=== PATIENT | female | born 1940 | race Caucasian/White ===

== ENCOUNTER 2017-03-27 16:24 | Emergency (ER) | payer MEDICARE, OTHER ==
[2017-03-27] MEDS ORDERED: Famotidine 20 MG/2 ML SDV IVPUSH ONE (16:28)
[2017-03-27] MEDS ORDERED: Sodium Chloride 0.9% 10 ML Syringe FLUSH PRN (16:28)
--- NOTE | 2017-03-27 16:28 | EDM.PDOC ---
ED HPI GENERAL MEDICAL PROBLEM - General Chief Complaint: General Stated Complaint: weakness, dehydration, constipation Time Seen by Provider: 03/27/17 16:25 Source of Information: Reports: Patient, Family (Grandson, telephone consultation with daughter), Old Records ([facility] chart/EMR) History Limitations: Reports: Altered Mental Status - History of Present Illness INITIAL COMMENTS - FREE TEXT/NARRATIVE: The patient was brought to the emergency room via private automobile by her grandson for evaluation of multiple nonspecific symptoms including progressive anorexia during the last months, constipation refractory to frequent fleets enema, nonproductive cough, wheezing, and some confusion. She did have a minor fall 2 days ago with large ecchymosis on her right leg at this time. No known history of head injury, loss of consciousness, etc., however the patient and the family are somewhat poor historians. Patient denies medication noncompliance despite significant elevated TSH as below. The patient denies any chest pain/pressure, heart flutter, dizziness, orthostasis, orthopnea, diaphoresis, paresthesias, recent decreased exercise tolerance, or any other anginal-type symptoms. No apparent history of fever or known exposure to infection or current UTI symptoms Onset: Gradual Duration: Getting Worse, Other (One month as above) Location: Reports: Abdomen (Questionable nonspecific generalized secondary to constipation), Lower Extremity, Right (Urinary to recent fall with ecchymosis). Denies: Head, Face, Chest, Back, Pelvis, Upper Extremity, Left, Upper Extremity, Right, Lower Extremity, Left, Radiates to Quality: Reports: Ache Severity: Mild Improves with: Reports: Rest Worsens with: Reports: Movement Context: Reports: Other (As above) Associated Symptoms: Reports: Confusion, Cough, Loss of Appetite, Malaise, Shortness of Breath, Weakness (Generalized). Denies: Chest Pain, cough w sputum , Diaphoresis, Fever/Chills, Headaches, Nausea/Vomiting, Seizure, Syncope Treatments COMBINATION TECHNICIAN: Reports: Other (see below) (None including nebulizer therapy) Abdomen Pain Score (Numeric/FACES): 5 - Related Data Allergies Allergy/AdvReac Type Severity Reaction Status Date / Time codeine Allergy Tachycardia Verified 03/27/17 16:34 Home Meds: Home Meds Albuterol Sulfate 2.5 mg IH Q4H PRN 12/28/15 [History] Albuterol [Proventil HFA] 2 puff INH Q4H PRN 12/28/15 [History] Budesonide [Pulmicort] 0.5 mg IH BID 12/28/15 [History] LORazepam 0.5 mg PO QID PRN 12/28/15 [History] Triamterene/Hydrochlorothiazid [Triamterene-HCTZ 37.5-25 MG] 1 each PO DAILY 05/13 [History] Acetaminophen [Tylenol Arthritis Pain] 1 tab PO BEDTIME PRN 03/27/17 [History] Acetaminophen/Diphenhydramine [Tylenol Pm Ex-Strength Caplet] 1 tab PO BEDTIME PRN 03/27/17 [History] Cholecalciferol (Vitamin D3) [D3 Dots] 1 tab PO DAILY 03/27/17 [History] Fluticasone/Vilanterol [Breo Ellipta 200-25 Mcg INH] 1 puff INH DAILY 03/27/17 [ History] Levothyroxine 112 mcg PO DAILY 03/27/17 [History] Mirtazapine 7.5 mg PO BEDTIME 03/27/17 [History] Venlafaxine [Effexor XR] 37.5 mg PO DAILY 03/27/17 [History] Past Medical History HEENT History: Reports: Impaired Vision, Other (See Below) Other HEENT History: Wears glasses Cardiovascular History: Reports: Arrhythmia, High Cholesterol, Hypertension, SOB on Exertion. 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 History: Reports: Dysfunctional Uterine Bleeding, Fibroids, LMP (Approximate): Menopausal Musculoskeletal History: Reports: Back Pain, Chronic, Neck Pain, Chronic, Osteoarthritis, Osteoporosis Psychiatric History: Reports: Anxiety, Depression Endocrine/Metabolic History: Reports: Hypothyroidism, Osteoporosis Oncologic (Cancer) History: Reports: Breast, Other (See Below) Other Oncologic History: 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 with lumpectomy, chemotherapy, and left axillary dissection initially diagnosed in 2010 - Past Surgical History HEENT Surgical History: Reports: Tonsillectomy, Other (See Below) Other HEENT Surgeries/Procedures: Tonsillectomy at age 15 GI Surgical History: Reports: Colonoscopy, Polypectomy, Other (See Below) Other GI Surgeries/Procedures: Colonoscopy on 01/14/13 Female Surgical History: Reports: Breast Biopsy, Other (See Below) Other Female Surgeries/Procedures: Multiple left breast biopsies in 1989 and again in 2006 with subsequent left breast lumpectomy and left axillary lymph node dissection in 2010 secondary to breast cancer as above Oncologic Surgical History: Reports: Lumpectomy, Other (See Below) Other Oncologic Surgeries/Procedures: As above - Past Imaging History Past Imaging History: Reports: DEXA Scan (Last DEXA scan on 02/26/11), Ultrasound (Pelvic and abdominal ultrasound on 02/09/15) Social & Family History - Family History Cardiac: Reports: Pacemaker, Other (See Below) Other Cardiac Family History: Mother with pacemaker Musculoskeletal: Reports: Osteoarthritis, Other (See Below) Other Musculoskeletal Family History: Sister with severe osteoarthritis Neurological: Reports: Parkinson's, Other (See Below) Other Neurological Family History: Father with Parkinson's disease Oncologic: Reports: Other (See Below) Other Oncologic Family History: Father with unknown type of lip cancer - Tobacco Use Smoking Status *Q: Current Every Day Smoker Years of Tobacco use: 60 Packs/Tins Daily: 0.7 Second Hand Smoke Exposure: Yes - Recreational Drug Use Recreational Drug Use: No - Living Situation & Occupation Living situation: Reports: , with Family ( and daughter) ED ROS GENERAL - Review of Systems Review Of Systems: ROS reveals no pertinent complaints other than HPI. (Patient and family are poor historians) ED EXAM, GENERAL - Physical Exam Exam: See Below Exam Limited By: Altered Mental Status General Appearance: Mild Distress (Mild distress initially secondary to dyspnea however improved with treatment as below), Other (Mild confusion) Eye Exam: Bilateral Eye: EOMI, Normal Inspection (No nystagmus), PERRL Ears: Normal External Exam, Normal Canal, Hearing Grossly Normal, Normal TMs Nose: Normal Mucosa, No Blood, Clear Rhinorrhea Throat/Mouth: Normal Inspection, Normal Lips, Normal Teeth, Normal Gums, Normal Oropharynx, Normal Voice, No Airway Compromise. No: Dysphagia, Perioral Cyanosis Head: Atraumatic, Normocephalic. No: Facial Swelling, Facial Tenderness, Sinus Tenderness Neck: Supple, Non-Tender, Full Range of Motion, Carotid Bruit (Mild bilateral carotid bruits). No: Lymphadenopathy (L), Lymphadenopathy (R), Thyromegaly Respiratory/Chest: No Accessory Muscle Use, Chest Non-Tender, Respiratory Distress (Mild initially improved with treatment), Rales (Moderate diffuse rales , rhonchi, and wheezing improved with treatment with persistent mild bilateral basilar rales at transfer). No: Pleural Rub, Retractions Cardiovascular: Normal Peripheral Pulses, Regular Rate, Rhythm, No Edema, No Gallop, No JVD, No Murmur, No Rub. No: Gallop/S3, Gallop/S4, Extra Beats (No extrasystoles at time of exam), Friction Rub Peripheral Pulses: 2+: Radial (L), Radial (R), Dorsalis Pedis (L), Dorsalis Pedis (R) GI/Abdominal: Normal Bowel Sounds, No Organomegaly, No Abnormal Bruit, No Mass, Pelvis Stable, Distended (Borderline secondary to constipation), Tender ( Diffuse nonspecific borderline). No: Guarding, Rebound (Female) Exam: Deferred Rectal (Female) Exam: Normal Rectal Tone, Fecal Impaction, Heme - Stool, Hemorrhoids (Grade 3 internal/external hemorrhoids). No: Black Stool, Bloody Stool, Mass, Rectal Fissure, Tenderness (No Johnathan space tenderness) Back Exam: Normal Inspection, Full Range of Motion. No: CVA Tenderness (L), CVA Tenderness (R), Muscle Spasm Extremities: Normal Range of Motion, No Pedal Edema, Normal Capillary Refill, Leg Pain (Mild nonspecific right leg discomfort with no deformity however moderate to severe ecchymosis extending in the inguinal region to the foot however no significant hematomas). No: Vicenta's Sign Neurological: Alert, CN II-XII Intact, Normal Reflexes (Edit Babinski's), Confused (Mild) Psychiatric: Normal Affect, Normal Mood Skin Exam: Ecchymosis (Right leg as above). No: Diaphoretic, Wound/Incision Lymphatic: No Adenopathy EKG INTERPRETATION EKG Date: 03/27/17 Time: 16:50 Rhythm: NSR Rate (Beats/Min): 68 [place]: Normal (Neutral cardiac axis) P-Wave: Enlarged (Mild Diffuse biphasic P waves with mild poor R-wave progression in anterior leads) QRS: Normal (QRS interval of 0.09 seconds representing repolarization changes with T-wave inversion in lead V1) ST-T: Normal QT: Normal MT/PQ Interval: 0.19 seconds Comparison: Change From Previous EKG (Resolution of previous PACs on 12/28/15) Course - Vital Signs Last Recorded V/S: Last Vital Signs Temp 36.6 C 03/27/17 16:30 Pulse 80 03/27/17 18:03 Resp 20 03/27/17 19:34 BP 95/68 03/27/17 19:34 Pulse Ox 91 L 03/27/17 19:34 Vital Signs - 24 hr 03/27/17 03/27/17 03/27/17 16:28 16:30 17:18 Temperature [ 36.6 C Temporal] Pulse, 88 74 71 Peripheral [ Left Pulse Oximetry] Respiratory 26 H 26 H 24 H Rate Blood Pressure 103/69 128/83 131/53 L [Left Upper Arm ] Blood Pressure [Right Upper Arm] O2 Sat by Pulse 91 L 88 L 94 L Oximetry 03/27/17 03/27/17 03/27/17 17:47 18:03 19:34 Temperature [ Temporal] Pulse, 66 80 Peripheral [ Left Pulse Oximetry] Respiratory 20 18 20 Rate Blood Pressure [Left Upper Arm ] Blood Pressure 106/39 L 84/66 L 95/68 [Right Upper Arm] O2 Sat by Pulse 89 L 97 91 L Oximetry - Orders/Labs/Meds Orders: Active Orders 24 hr Category Date Time Status Cardiac Monitoring [RC] . DIRECTED Care 03/27/17 16:28 Active EKG Documentation Completion [RC] ASDIRECTED Care 03/27/17 16:28 Active Oxygen Therapy, ED [RC] CONTINUOUS Care 03/27/17 16:28 Active Peripheral IV Care [RC] . DIRECTED Care 03/27/17 16:28 Active Pulse Oximetry [RC] CONTINUOUS Care 03/27/17 16:28 Active RT Aerosol Therapy [RC] ASDIRECTED Care 03/27/17 16:35 Active Up With Assistance [RC] PFP Care 03/27/17 16:28 Active Vital Signs [RC] PFP Care 03/27/17 16:28 Active Nothing per Oral Now Diet [DIET] Diet 03/27/17 Breakfast Active Abdomen Series w Chest 1V [CR] Stat Exams 03/27/17 16:30 Taken Levothyroxine [Synthroid] Med 03/28/17 17:51 Once 100 mcg PO ONETIME ONE Sodium Chloride 0.9% [Saline Flush] Med 03/27/17 16:28 Active 10 ml FLUSH ASDIRECTED PRN Obtain Past Medical Record [OM.PC] Urgent Oth 03/27/17 16:28 Active Peripheral IV Insertion Adult [OM.PC] Stat Oth 03/27/17 16:28 Ordered Resuscitation Status Stat Resus Stat 03/27/17 16:28 Ordered Medication Orders Levothyroxine Sodium (Synthroid) 100 mcg PO ONETIME ONE Stop: 03/28/17 17:52 Sodium Chloride (Saline Flush) 10 ml FLUSH ASDIRECTED PRN PRN Reason: Keep Vein Open Labs: Laboratory Tests 03/27/17 03/27/17 03/27/17 Range/Units 16:45 16:45 16:45 WBC 17.1 H (4.0-10.2) K/uL RBC 1.98 L (3.77-5.09) M/uL Hgb 6.7 L* D (11.7-15.5) g/dL Hct 20.5 L* (34.0-46.0) % MCV 103.5 H (84.0-98.0) fL MCH 33.8 H (28.2-33.3) pg MCHC 32.7 (31.7-36.0) g/dL RDW 13.9 (11.2-14.1) % Plt Count 178 (150-350) K/uL Neut % (Auto) 87.6 H (45.0-80.0) % Lymph % (Auto) 4.4 L (10.0-50.0) % [place] % (Auto) 7.7 (2.0-14.0) % Eos % (Auto) 0.1 (0.0-5.0) % Baso % (Auto) 0.2 (0.0-2.0) % Neut # (Auto) 14.97 H (1.40-7.00) K/uL Lymph # (Auto) 0.76 (0.50-3.50) K/uL [place] # (Auto) 1.32 H (0.00-1.00) K/uL Eos # (Auto) 0.01 (0.00-0.50) K/uL Baso # (Auto) 0.04 (0.00-0.20) K/uL PT 10.2 (9.8-11.7) SEC INR 1.0 APTT 21.1 L (22.1-29.8) SEC D-Dimer, Quantitative 521 H (0-400) ng/mL Sodium (136-145) mmol/L Potassium (3.5-5.1) mmol/L Chloride (98-107) mmol/L Carbon Dioxide (21.0-32.0) mmol/L BUN (7-18) mg/dL Creatinine (0.51-1.17) mg/dL Est Cr Clr Drug Dosing mL/min Estimated GFR (MDRD) mL/min Glucose (74-106) mg/dL Hemoglobin A1c (4.3-5.7) % Lactic Acid (0.4-2.0) mmol/L Uric Acid (2.6-7.2) mg/dL Calcium (8.5-10.1) mg/dL Magnesium (1.8-2.4) mg/dL Total Bilirubin (0.2-1.0) mg/dL AST (15-37) U/L ALT (12-78) U/L Alkaline Phosphatase (46-116) IU/L Creatine Kinase (26-308) U/L Creatine Kinase Index (0.0-2.5) % CK-MB (CK-2) (0.00-3.60) ng/mL Troponin I (0.000-0.056) ng/mL NT-Pro-B Natriuret Pep (0-125) pg/mL Total Protein (6.4-8.2) g/dL Albumin (3.4-5.0) g/dL Amylase (25-115) U/L Lipase (73-393) U/L TSH, Ultra Sensitive (0.358-3.740) mIU/mL 03/27/17 03/27/17 03/27/17 Range/Units 16:45 16:45 16:45 WBC (4.0-10.2) K/uL RBC (3.77-5.09) M/uL Hgb (11.7-15.5) g/dL Hct (34.0-46.0) % MCV (84.0-98.0) fL MCH (28.2-33.3) pg MCHC (31.7-36.0) g/dL RDW (11.2-14.1) % Plt Count (150-350) K/uL Neut % (Auto) (45.0-80.0) % Lymph % (Auto) (10.0-50.0) % [place] % (Auto) (2.0-14.0) % Eos % (Auto) (0.0-5.0) % Baso % (Auto) (0.0-2.0) % Neut # (Auto) (1.40-7.00) K/uL Lymph # (Auto) (0.50-3.50) K/uL [place] # (Auto) (0.00-1.00) K/uL Eos # (Auto) (0.00-0.50) K/uL Baso # (Auto) (0.00-0.20) K/uL PT (9.8-11.7) SEC INR APTT (22.1-29.8) SEC D-Dimer, Quantitative (0-400) ng/mL Sodium 129 L D (136-145) mmol/L Potassium 4.1 (3.5-5.1) mmol/L Chloride 85 L D (98-107) mmol/L Carbon Dioxide 39.6 H (21.0-32.0) mmol/L BUN 19 H (7-18) mg/dL Creatinine 1.33 H (0.51-1.17) mg/dL Est Cr Clr Drug Dosing 29.77 mL/min Estimated GFR (MDRD) 39 mL/min Glucose 207 H (74-106) mg/dL Hemoglobin A1c (4.3-5.7) % Lactic Acid 3.4 H (0.4-2.0) mmol/L Uric Acid 8.4 H (2.6-7.2) mg/dL Calcium 8.9 (8.5-10.1) mg/dL Magnesium 2.1 (1.8-2.4) mg/dL Total Bilirubin 0.9 (0.2-1.0) mg/dL AST 64 H (15-37) U/L ALT 25 (12-78) U/L Alkaline Phosphatase 44 L (46-116) IU/L Creatine Kinase 1735 H (26-308) U/L Creatine Kinase Index 0.4 (0.0-2.5) % CK-MB (CK-2) 6.40 H* (0.00-3.60) ng/mL Troponin I 0.022 (0.000-0.056) ng/mL NT-Pro-B Natriuret Pep 343 H (0-125) pg/mL Total Protein 6.5 (6.4-8.2) g/dL Albumin 3.6 (3.4-5.0) g/dL Amylase 30 (25-115) U/L Lipase (73-393) U/L TSH, Ultra Sensitive 87.984 H (0.358-3.740) mIU/mL 03/27/17 03/27/17 Range/Units 16:45 16:45 WBC (4.0-10.2) K/uL RBC (3.77-5.09) M/uL Hgb (11.7-15.5) g/dL Hct (34.0-46.0) % MCV (84.0-98.0) fL MCH (28.2-33.3) pg MCHC (31.7-36.0) g/dL RDW (11.2-14.1) % Plt Count (150-350) K/uL Neut % (Auto) (45.0-80.0) % Lymph % (Auto) (10.0-50.0) % [place] % (Auto) (2.0-14.0) % Eos % (Auto) (0.0-5.0) % Baso % (Auto) (0.0-2.0) % Neut # (Auto) (1.40-7.00) K/uL Lymph # (Auto) (0.50-3.50) K/uL [place] # (Auto) (0.00-1.00) K/uL Eos # (Auto) (0.00-0.50) K/uL Baso # (Auto) (0.00-0.20) K/uL PT (9.8-11.7) SEC INR APTT (22.1-29.8) SEC D-Dimer, Quantitative (0-400) ng/mL Sodium (136-145) mmol/L Potassium (3.5-5.1) mmol/L Chloride (98-107) mmol/L Carbon Dioxide (21.0-32.0) mmol/L BUN (7-18) mg/dL Creatinine (0.51-1.17) mg/dL Est Cr Clr Drug Dosing mL/min Estimated GFR (MDRD) mL/min Glucose (74-106) mg/dL Hemoglobin A1c 6.2 H (4.3-5.7) % Lactic Acid (0.4-2.0) mmol/L Uric Acid (2.6-7.2) mg/dL Calcium (8.5-10.1) mg/dL Magnesium (1.8-2.4) mg/dL Total Bilirubin (0.2-1.0) mg/dL AST (15-37) U/L ALT (12-78) U/L Alkaline Phosphatase (46-116) IU/L Creatine Kinase (26-308) U/L Creatine Kinase Index (0.0-2.5) % CK-MB (CK-2) (0.00-3.60) ng/mL Troponin I (0.000-0.056) ng/mL NT-Pro-B Natriuret Pep (0-125) pg/mL Total Protein (6.4-8.2) g/dL Albumin (3.4-5.0) g/dL Amylase (25-115) U/L Lipase 109 (73-393) U/L TSH, Ultra Sensitive (0.358-3.740) mIU/mL Meds: Medications Generic Name Dose Route Start Last Admin Trade Name Freq PRN Reason Stop Dose Admin Levothyroxine Sodium 100 mcg 03/28/17 17:51 Synthroid PO 03/28/17 17:52 ONETIME ONE Sodium Chloride 10 ml 03/27/17 16:28 Saline Flush FLUSH ASDIRECTED PRN Keep Vein Open Discontinued Medications Generic Name Dose Route Start Last Admin Trade Name Freq PRN Reason Stop Dose Admin Albuterol/Ipratropium 3 ml 03/27/17 16:35 03/27/17 16:58 Duoneb 3.0-0.5 Mg/3 Ml NEB 03/27/17 16:36 3 ml ONETIME ONE Administration Budesonide 0.5 mg 03/27/17 16:35 03/27/17 17:03 Pulmicort NEB 03/27/17 16:36 0.5 mg ONETIME ONE Administration Famotidine 40 mg 03/27/17 16:28 03/27/17 16:58 Pepcid IVPUSH 03/27/17 16:29 40 mg ONETIME ONE Administration Ceftriaxone Sodium 1 gm/ 100 mls @ 200 mls/hr 03/27/17 17:50 03/27/17 17:57 Sodium Chloride IV 03/27/17 18:19 200 mls/hr ONETIME ONE Administration - Radiology Interpretation Free Text/Narrative:: Acute abdominal x-rays shows moderate diffuse bowel gaseous distention with possible borderline beginning obstruction secondary to diffuse moderate to severe stool including in the rectal vault. No fluid levels or free air noted. Moderate to severe cardiomegaly with moderate aortic valve calcification and moderately prominent proximal aortic arch. Probable pulmonary hypertension and mild centralized CHF with additional moderate COPD changes and left lower lobe atelectasis. Surgical is noted in the left axillary region with moderate bilateral coxarthrosis Departure - Departure Time of Disposition: 19:15 Disposition: DC/Tfer to [facility] 02 Condition: Fair Clinical Impression: Pneumonia, COPD (chronic obstructive pulmonary disease), CHF (congestive heart failure), Hyponatremia, Elevated CK, Elevated LFTs, Anemia, Elevated blood uric acid level, Abdominal pain, Osteoarthritis, Diabetes mellitus, D-dimer, elevated , Lactic acid increased, Hypothyroidism (acquired) - Discharge Information Referrals: Oma Toussaint PA [Primary Care Provider] - Forms: ED Department Discharge, Interfacility Transfer EMTALA - Problem List & Annotations (1) Pneumonia SNOMED Code(s): 154945932 Code(s): J18.9 - PNEUMONIA, UNSPECIFIED ORGANISM Status: Acute Priority: High Current Visit: Yes Onset Date: 03/27/17 Annotation/Comment:: Likely bilateral pneumonia secondary to clinical exam. No significant leukocytosis, etc. as below. IV Rocephin given in the emergency room with continued antibiotic therapy per orders from accepting providers. Telephone consultation at 17:[address] Almonte, hospitalist at [facility] in [place], who does accept the patient for direct admission. No further treatment recommendations given. Previous telephone consultation with the patient's daughter, Brianne, at 17:50 hours, who is in agreement with treatment plan, including patient's transfer. Full code status was also confirmed with the patient's daughter. Attempt to obtain sputum with culture and sensitivity ELIZABETH Qualifiers: Pneumonia type: due to unspecified organism Laterality: bilateral Lung location: unspecified part of lung Qualified Code(s): J18.9 - Pneumonia, unspecified organism (2) Lactic acid increased SNOMED Code(s): 94536200 Code(s): E87.2 - ACIDOSIS Status: Acute Priority: High Current Visit: Yes Onset Date: 03/27/17 Annotation/Comment:: Note probable pneumonia by clinical exam with additional significant leukocytosis and possible sepsis. Lactic acid level should be repeated in about 6 hours and consider blood cultures, UA with culture and sensitivity, etc. depending on her clinical course (3) Abdominal pain SNOMED Code(s): 27947896 Code(s): R10.9 - UNSPECIFIED ABDOMINAL PAIN Status: Acute Priority: High Current Visit: Yes Onset Date: ~03/27/17 Annotation/Comment:: Nonspecific abdominal pain with progressive anorexia during the last month. Symptoms likely secondary to chronic constipation, however note significant anemia as below/above. High-dose IV Pepcid given in the emergency room. Note negative Hemoccult. Further GI workup depending on her clinical course Qualifiers: Abdominal location: generalized Qualified Code(s): R10.84 - Generalized abdominal pain (4) Anemia SNOMED Code(s): 418580429 Code(s): D64.9 - ANEMIA, UNSPECIFIED Status: Acute Priority: High Current Visit: Yes Onset Date: 03/27/17 Annotation/Comment:: Severe anemia as above. Likely history of chronic anemia secondary to her diabetic nephropathy , chronic disease, recent blood loss from moderately severe ecchymosis of her right leg. Further workup depending on her clinical course. Patient may benefit from blood transfusion. Note one month history of refractory anorexia and previous history of breast cancer with further workup depending on her clinical course Qualifiers: Anemia type: other cause Other causes of anemia: other cause, not classified Qualified Code(s): D64.89 - Other specified anemias (5) CHF (congestive heart failure) SNOMED Code(s): 76586314 Code(s): I50.9 - HEART FAILURE, UNSPECIFIED Status: Acute Priority: High Current Visit: Yes Onset Date: 03/27/17 Annotation/Comment:: No true chest pain or anginal complaints with chest pain protocol not initiated in the emergency room. Note probable cardiac component to her symptoms, including her COPD exacerbation. Recommend routine rule out NH workup with possible cardiology consultation, etc. depending on her clinical course. No IV Lasix was given in the emergency room per recommendations from accepting provider Qualifiers: Congestive heart failure type: unspecified congestive heart failure type Congestive heart failure chronicity: acute Qualified Code(s): I50.9 - Heart failure, unspecified (6) COPD (chronic obstructive pulmonary disease) SNOMED Code(s): 64856637 Code(s): J44.9 - CHRONIC OBSTRUCTIVE PULMONARY DISEASE, UNSPECIFIED Status : Acute Priority: High Current Visit: Yes Annotation/Comment:: Patient symptoms improved with triple nebulizer treatment in the emergency room. Continue aggressive nebulizer therapy during upcoming hospitalization with known history of O2 dependent COPD Qualifiers: COPD type: COPD with acute lower respiratory infection Qualified Code(s): J44.0 - Chronic obstructive pulmonary disease with acute lower respiratory infection (7) D-dimer, elevated SNOMED Code(s): 403078346 Code(s): R79.89 - OTHER SPECIFIED ABNORMAL FINDINGS OF BLOOD CHEMISTRY Status: Acute Priority: High Current Visit: Yes Onset Date: 03/27/17 Annotation/Comment:: No direct clinical evidence of DVT or PE with further workup by providing physicians. CTA of the chest was not conducted in the emergency room secondary to her renal insufficiency (8) Diabetes mellitus SNOMED Code(s): 63500442 Code(s): E11.9 - TYPE 2 DIABETES MELLITUS WITHOUT COMPLICATIONS Status: Acute Priority: Medium Current Visit: Yes Onset Date: 03/27/17 Annotation/Comment:: No previous history of diabetes mellitus. Note hyperglycemia, renal insufficiency, and mildly elevated glycosylated hemoglobin. Continue close follow-up by accepting providers Qualifiers: Diabetes mellitus type: type 2 Diabetes mellitus complication status: with kidney complications Diabetes mellitus complication detail: with chronic kidney disease Diabetes mellitus intermediate insulin use: without intermediate use Chronic kidney disease stage: stage 3 (moderate) Qualified Code(s): E11.22 - Type 2 diabetes mellitus with diabetic chronic kidney disease; N18.3 - Chronic kidney disease, stage 3 (moderate); N18.3 - Chronic kidney disease, stage 3 (moderate) (9) Elevated CK SNOMED Code(s): 385654712 Code(s): R74.8 - ABNORMAL LEVELS OF OTHER SERUM ENZYMES Status: Acute Priority: High Current Visit: Yes Onset Date: 03/27/17 Annotation/Comment: : Note significantly elevated CK secondary to recent right leg contusion and ecchymosis. No direct evidence of rhabdomyolysis. If IV fluids are given, this was should be conducted with discretion secondary to her CHF. Continue to observe closely. Note negative cardiac index with only mild change in troponin I , which is still normal, likely secondary to her CHF. No EKG changes indicative of acute ischemia (10) Elevated LFTs SNOMED Code(s): 906968328 Code(s): R79.89 - OTHER SPECIFIED ABNORMAL FINDINGS OF BLOOD CHEMISTRY Status: Chronic Priority: Medium Current Visit: Yes Onset Date: 03/27/17 Annotation/Comment:: Mild LFTs elevation likely secondary to her CHF (11) Elevated blood uric acid level SNOMED Code(s): 06572650 Code(s): E79.0 - HYPERURICEMIA W/O SIGNS OF INFLAM ARTHRIT AND TOPHACEOUS DIS Status: Acute Priority: Medium Current Visit: Yes Onset Date: Annotation/Comment:: Newly diagnosed hyperuricemia with no gout type symptoms (12) Hyponatremia SNOMED Code(s): 29407075 Code(s): E87.1 - HYPO-OSMOLALITY AND HYPONATREMIA Status: Acute Priority : High Current Visit: Yes Onset Date: 03/27/17 Annotation/Comment:: Significant hyponatremia likely secondary to her CHF with some secondary confusion. Continue to observe her neurological status closely see (13) Osteoarthritis SNOMED Code(s): 116678301 Code(s): M19.90 - UNSPECIFIED OSTEOARTHRITIS, UNSPECIFIED SITE Status: Chronic Priority: Medium Current Visit: Yes Annotation/Comment:: Other than contusion otherwise stable by history Qualifiers: Osteoarthritis location: multiple joints Osteoarthritis type: primary Qualified Code(s): M15.0 - Primary generalized (osteo)arthritis (14) Hypothyroidism (acquired) SNOMED Code(s): 844393061 Code(s): E03.9 - HYPOTHYROIDISM, UNSPECIFIED Status: Chronic Priority: High Current Visit: Yes Annotation/Comment:: Note previously known history of hypothyroidism. Severely elevated TSH today. Question of patient medication noncompliance. Synthroid 100 g given in the emergency room - Problem List Review Problem List Initiated/Reviewed/Updated: Yes - My Orders Last 24 Hours: My Active Orders 03/27/17 16:28 Cardiac Monitoring [RC] . DIRECTED EKG Documentation Completion [RC] ASDIRECTED Oxygen Therapy, ED [RC] CONTINUOUS Peripheral IV Care [RC] . DIRECTED Pulse Oximetry [RC] CONTINUOUS Up With Assistance [RC] PFP Vital Signs [RC] PFP Sodium Chloride 0.9% [Saline Flush] 10 ml FLUSH ASDIRECTED PRN Obtain Past Medical Record [OM.PC] Urgent Peripheral IV Insertion Adult [OM.PC] Stat Resuscitation Status Stat 03/27/17 16:30 Abdomen Series w Chest 1V [CR] Stat 03/27/17 16:35 RT Aerosol Therapy [RC] ASDIRECTED 03/27/17 Breakfast Nothing per Oral Now Diet [DIET] 03/28/17 17:51 Levothyroxine [Synthroid] 100 mcg PO ONETIME ONE - Assessment/Plan Last 24 Hours: My Active Orders 03/27/17 16:28 Cardiac Monitoring [RC] . DIRECTED EKG Documentation Completion [RC] ASDIRECTED Oxygen Therapy, ED [RC] CONTINUOUS Peripheral IV Care [RC] . DIRECTED Pulse Oximetry [RC] CONTINUOUS Up With Assistance [RC] PFP Vital Signs [RC] PFP Sodium Chloride 0.9% [Saline Flush] 10 ml FLUSH ASDIRECTED PRN Obtain Past Medical Record [OM.PC] Urgent Peripheral IV Insertion Adult [OM.PC] Stat Resuscitation Status Stat 03/27/17 16:30 Abdomen Series w Chest 1V [CR] Stat 03/27/17 16:35 RT Aerosol Therapy [RC] ASDIRECTED 03/27/17 Breakfast Nothing per Oral Now Diet [DIET] 03/28/17 17:51 Levothyroxine [Synthroid] 100 mcg PO ONETIME ONE Assessment:: As above Plan: As above. Extensive precautions were given to the patient and her family, who are in agreement with the treatment plan. Patient transfer via ambulance with trucksmith accompaniment
[2017-03-27] MEDS ORDERED: Albuterol/Ipratropium 3.0-0.5 MG/3 ML Neb Soln NEB ONE (16:35)
[2017-03-27] MEDS ORDERED: Budesonide 0.5 MG/2 ML Neb Susp NEB ONE (16:35)
[2017-03-27] MEDS ORDERED: cefTRIAXone 1 GM in Sodium Chloride 0.9% 100 ML IV ONE (17:50)
[2017-03-27 19:34] VITALS: BP 95/68
[2017-03-28] MEDS ORDERED: Levothyroxine 100 MCG Tab PO ONE (17:51)
== END 2017-03-27 19:15 ==
LOC: LL.ED 16:24
DX: J18.9 Pneumonia, unspecified organism (principal); I11.0 Hypertensive heart disease with heart failure; I50.9 Heart failure, unspecified; J44.9 Chronic obstructive pulmonary disease, unspecified; E87.1 Hypo-osmolality and hyponatremia; R10.9 Unspecified abdominal pain; E11.9 Type 2 diabetes mellitus without complications; E03.9 Hypothyroidism, unspecified; R94.5 Abnormal results of liver function studies; R74.8 Abnormal levels of other serum enzymes; D64.9 Anemia, unspecified; E79.0 Hyperuricemia without signs of inflammatory arthritis and tophaceous disease; M19.90 Unspecified osteoarthritis, unspecified site; R79.89 Other specified abnormal findings of blood chemistry; F17.210 Nicotine dependence, cigarettes, uncomplicated; Z88.5 Allergy status to narcotic agent; Z79.899 Other long term (current) drug therapy; E78.00 Pure hypercholesterolemia, unspecified
CPT/HCPCS: 36415; 74022; 80053; 82150; 82272; 82550; 82553; 83036; 83605; 83690; 83735; 83880; 84443; 84484; 84550; 85025; 85379; 85610; 85730; 93005; 94640; 96365; 96375; 99285; J0696; J7050; 93010; S0028

== ENCOUNTER 2019-01-04 12:28 | Inpatient (IN) | payer MEDICARE, OTHER ==
[2019-01-04 13:06] LABS: CHLORIDE,CL 103 mmol/L (98-107); SODIUM,NA 147 mmol/L (136-145)
[2019-01-04] MEDS ORDERED: Furosemide 40 MG/4 ML VIAL IVPUSH ONE (13:11)
[2019-01-04] MEDS ORDERED: methylPREDNISolone Sodium Succinate 125 MG/2 ML SDV IVPUSH ONE (13:12)
--- NOTE | 2019-01-04 13:30 | EDM.PDOC ---
ED HPI GENERAL MEDICAL PROBLEM - General Chief Complaint: Respiratory Problem Stated Complaint: shortness of breath Time Seen by Provider: 01/04/19 12:40 Source of Information: Reports: Patient History Limitations: Reports: No Limitations - History of Present Illness INITIAL COMMENTS - FREE TEXT/NARRATIVE: Patient is a 78-year-old with significant patient total breath started today recently hospitalized with a pleural effusion and had a thoracocentesis with patient met of thoracostomy tube for about 5 days did better and was sent to [place]. Onset: Today Duration: Hour(s):, Getting Worse Location: Reports: Chest Quality: Reports: Same as Previous Episode Severity: Severe Improves with: Reports: None Worsens with: Reports: None Context: Reports: Activity Associated Symptoms: Reports: Shortness of Breath, Weakness - Related Data Allergies Allergy/AdvReac Type Severity Reaction Status Date / Time codeine Allergy Tachycardia Verified 01/04/19 15:12 Home Meds: Home Meds Acetaminophen [Tylenol Arthritis Pain] 1 tab PO BEDTIME PRN 03/27/17 [History] Acetaminophen/Diphenhydramine [Tylenol Pm Ex-Strength Caplet] 1 tab PO BEDTIME PRN 03/27/17 [History] Cholecalciferol (Vitamin D3) [D3 Dots] 1 tab PO DAILY 03/27/17 [History] Mirtazapine 7.5 mg PO BEDTIME 03/27/17 [History] Arformoterol [Brovana] 15 mcg INH Q12HR 01/04/19 [History] Aspirin [Halfprin] 81 mg PO DAILY 01/04/19 [History] Budesonide [Pulmicort] 0.5 mg IH Q12HR 01/04/19 [History] Diltiazem HCl [Cardizem Cd] 180 mg PO DAILY 01/04/19 [History] Furosemide [Lasix] 20 mg PO DAILY 01/04/19 [History] Hydrocodone/Acetaminophen [Hydrocodon-Acetaminophen 5-325] 1 each PO Q4HR PRN [History] LORazepam 0.5 mg PO BID 01/04/19 [History] Levalbuterol HCl [Xopenex] 1 ampule NEB Q4HRRT PRN 01/04/19 [History] Levalbuterol Tartrate [Xopenex Hfa] 2 puff IH ASDIRECTED PRN 01/04/19 [History] Levothyroxine Sodium [Synthroid] 125 mcg PO DAILY 01/04/19 [History] Methocarbamol [Robaxin] 500 mg PO TID PRN 01/04/19 [History] Metoprolol Tartrate [Lopressor] 25 mg PO TID 01/04/19 [History] Nystatin 1 each MC ASDIRECTED 01/04/19 [History] Polyethylene Glycol 3350 [MiraLAX] 17 gm PO DAILY 01/04/19 [History] Revefenacin [Yupelri] 175 mcg IH DAILY 01/04/19 [History] Rosuvastatin [Crestor] 10 mg PO DAILY@2100 01/04/19 [History] Venlafaxine [Effexor XR] 75 mg PO DAILY 01/04/19 [History] Past Medical History HEENT History: Reports: Impaired Vision, Other (See Below) Other HEENT History: Wears glasses Cardiovascular History: Reports: Arrhythmia, High Cholesterol, Hypertension, SOB on Exertion Other Cardiovascular History: PACs, PVCs, and bigeminy Respiratory History: Reports: Bronchitis, Recurrent, COPD, Pneumonia, Recurrent Other Respiratory History: O2 dependent COPD Gastrointestinal History: Reports: Chronic Constipation, Colon Polyp, Diverticulosis, Other (See Below) Other Gastrointestinal History: Tubular adenomas and hyperplastic polyps at about 35 cm excised at time of colonoscopy on 01/14/13 PUBLICIST History: Reports: Dysfunctional Uterine Bleeding, Fibroids, Musculoskeletal History: Reports: Back Pain, Chronic, Neck Pain, Chronic, Osteoarthritis, Osteoporosis Psychiatric History: Reports: Anxiety, Depression Endocrine/Metabolic History: Reports: Hypothyroidism, Osteoporosis Oncologic (Cancer) History: Reports: Breast, Other (See Below) Other Oncologic History: Left-sided breast cancer stage 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 with lumpectomy, chemotherapy, and left axillary dissection initially diagnosed in 2010 - Past Surgical History HEENT Surgical History: Reports: Tonsillectomy, Other (See Below) Other HEENT Surgeries/Procedures: Tonsillectomy at age 15 GI Surgical History: Reports: Colonoscopy, Polypectomy, Other (See Below) Other GI Surgeries/Procedures: Colonoscopy on 01/14/13 Female Surgical History: Reports: Breast Biopsy, Other (See Below) Other Female Surgeries/Procedures: Multiple left breast biopsies in 1989 and again in 2006 with subsequent left breast lumpectomy and left axillary lymph node dissection in 2011 secondary to breast cancer as above Oncologic Surgical History: Reports: Lumpectomy, Other (See Below) Other Oncologic Surgeries/Procedures: As above - Past Imaging History Past Imaging History: Reports: DEXA Scan (Last DEXA scan on 02/26/11), Ultrasound (Pelvic and abdominal ultrasound on 02/09/15) Social & Family History - Family History Cardiac: Reports: Pacemaker, Other (See Below) Other Cardiac Family History: Mother with pacemaker Musculoskeletal: Reports: Osteoarthritis, Other (See Below) Other Musculoskeletal Family History: Sister with severe osteoarthritis Neurological: Reports: Parkinson's, Other (See Below) Other Neurological Family History: Father with Parkinson's disease Oncologic: Reports: Other (See Below) Other Oncologic Family History: Father with unknown type of lip cancer - Living Situation & Occupation Living situation: Reports: , with Family ( and daughter) ED ROS GENERAL - Review of Systems Review Of Systems: See Below Constitutional: Reports: Weakness, Weight Gain HEENT: Reports: No Symptoms Respiratory: Reports: Shortness of Breath Cardiovascular: Reports: Dyspnea on Exertion Endocrine: Reports: Fatigue GI/Abdominal: Reports: No Symptoms : Reports: No Symptoms Musculoskeletal: Reports: No Symptoms Skin: Reports: No Symptoms Neurological: Reports: No Symptoms Psychiatric: Reports: Agitation, Anxiety Hematologic/Lymphatic: Reports: No Symptoms Immunologic: Reports: No Symptoms ED EXAM, GENERAL - Physical Exam Exam: See Below Exam Limited By: No Limitations General Appearance: Moderate Distress Ears: Normal External Exam, Normal Canal, Hearing Grossly Normal, Normal TMs Ear Exam: Bilateral Ear: Auricle Normal, Canal Normal, TM normal Nose: Normal Inspection, Normal Mucosa, No Blood Throat/Mouth: Normal Inspection, Normal Lips, Normal Teeth, Normal Gums, Normal Oropharynx, Normal Voice, No Airway Compromise Head: Atraumatic, Normocephalic Neck: Normal Inspection, Supple, Non-Tender, Full Range of Motion Respiratory/Chest: Respiratory Distress, Decreased Breath Sounds, Wheezing, Prolonged Expiration Cardiovascular: Irregularly Irregular GI/Abdominal: Normal Bowel Sounds, Soft, Non-Tender, No Organomegaly, No Distention, No Abnormal Bruit, No Mass (Female) Exam: Deferred Rectal (Female) Exam: Deferred Back Exam: Normal Inspection, Full Range of Motion, NT Extremities: Pedal Edema, Limited Range of Motion Neurological: Alert, Oriented, CN II-XII Intact, Normal Cognition, Normal Gait, Normal Reflexes, No Motor/Sensory Deficits Psychiatric: Anxious Skin Exam: Warm, Dry, Intact, Normal Color, No Rash Lymphatic: No Adenopathy Course - Vital Signs Last Recorded V/S: Last Vital Signs Temp 98.1 F 01/05/19 07:19 Pulse 122 H 01/05/19 07:53 Resp 44 H 01/05/19 07:19 BP 153/80 H 01/05/19 07:53 Pulse Ox 83 L 01/05/19 10:35 - Orders/Labs/Meds Orders: Active Orders 24 hr Category Date Time Status EKG Documentation Completion [RC] ASDIRECTED Care 01/04/19 13:11 Active RT Aerosol Therapy [RC] ASDIRECTED Care 01/04/19 13:45 Active RT Arterial Blood Gases, ABG [] Click to Edit Care 01/04/19 13:09 Active Chest 1V Frontal [CR] Stat Exams 01/04/19 12:40 Taken Sodium Chloride 0.9% [Saline Flush] Med 01/04/19 13:11 Active 10 ml FLUSH ASDIRECTED PRN Saline Lock Insert [OM.PC] Stat Oth 01/04/19 13:10 Ordered Medication Orders Acetaminophen (Tylenol Arthritis Pain) 650 mg PO BEDTIME PRN PRN Reason: Pain Acetaminophen (Tylenol Extra Strength) 500 mg PO BEDTIME PRN PRN Reason: INSOMNIA Last Admin: 01/04/19 19:22 Dose: 500 mg Hydrocodone Bitart/Acetaminophen ([place] 325-5 Mg) 1 tab PO Q4HR PRN PRN Reason: Pain Albuterol/Ipratropium (Duoneb 3.0-0.5 Mg/3 Ml) 3 ml NEB Q4H PRN PRN Reason: Dyspnea Albuterol/Ipratropium (Duoneb 3.0-0.5 Mg/3 Ml) 3 ml NEB Q4HRRT LIN Last Admin: 01/05/19 07:47 Dose: 3 ml Admin: 01/05/19 04:31 Dose: 3 ml Admin: 01/05/19 01:24 Dose: 3 ml Admin: 01/04/19 19:27 Dose: 3 ml Admin: 01/04/19 17:51 Dose: 3 ml Arformoterol Tartrate (Brovana) 15 mcg INH Q12HR LIN Last Admin: 01/05/19 07:35 Dose: 15 mcg Admin: 01/04/19 19:27 Dose: 15 mcg Aspirin (Halfprin) 81 mg PO DAILY [facility] Last Admin: 01/05/19 07:52 Dose: 81 mg Budesonide (Pulmicort) 0.5 mg NEB Q12HR [facility] Last Admin: 01/05/19 08:07 Dose: 0.5 mg Admin: 01/04/19 19:23 Dose: 0.5 mg Cholecalciferol (Vitamin D3) 50 mcg PO DAILY [facility] Last Admin: 01/05/19 07:54 Dose: 50 mcg Diltiazem HCl (Cardizem Cd) 180 mg PO DAILY [facility] Last Admin: 01/05/19 07:54 Dose: 180 mg Diphenhydramine HCl (Benadryl) 25 mg PO BEDTIME PRN PRN Reason: INSOMNIA Last Admin: 01/04/19 19:22 Dose: 25 mg Enoxaparin Sodium (Lovenox) 40 mg SUBCUT DAILY [facility] Last Admin: 01/05/19 07:39 Dose: 40 mg Furosemide (Lasix) 40 mg IVPUSH BID@08,14 [facility] Last Admin: 01/05/19 07:42 Dose: 40 mg Azithromycin 500 mg/ Sodium (Chloride) 250 mls @ 250 mls/hr IV Q24H [facility] Last Admin: 01/04/19 17:50 Dose: 250 mls/hr Insulin Human Lispro (Humalog) 0 unit SUBCUT TIDAC [facility]; Protocol Levalbuterol HCl (Xopenex) 1.25 mg INH Q4HR PRN PRN Reason: SHORTNESS OF BREATH Levothyroxine Sodium (Synthroid) 100 mcg PO DAILY [facility] Last Admin: 01/05/19 07:55 Dose: 100 mcg Levothyroxine Sodium (Levothyroxine) 25 mcg PO DAILY [facility] Last Admin: 01/05/19 07:54 Dose: 25 mcg Lorazepam (Ativan) 0.5 mg PO BID [facility] Last Admin: 01/05/19 07:53 Dose: 0.5 mg Admin: 01/04/19 17:52 Dose: 0.5 mg Methocarbamol (Robaxin) 500 mg PO TID PRN PRN Reason: Muscle Spasm Methylprednisolone Sodium Succinate (Solu-Medrol) 125 mg IVPUSH Q6H [facility] Last Admin: 01/05/19 08:02 Dose: 125 mg Admin: 01/05/19 04:31 Dose: 125 mg Metoprolol Tartrate (Lopressor) 25 mg PO TID [facility] Last Admin: 01/05/19 07:53 Dose: 25 mg Admin: 01/04/19 17:52 Dose: 25 mg Mirtazapine (Remeron) 7.5 mg PO BEDTIME [facility] Last Admin: 01/04/19 19:22 Dose: 7.5 mg Levalbuterol Tartrate [Xopenex Hfa] 45mcg/Act Inhaler 2 puff IH ASDIRECTED PRN PRN Reason: SHORTNESS OF BREATH Revefenacin [Yupelri ] 175 Mcg Inhalation Solution 175 mcg IH DAILY [facility] Last Admin: 01/05/19 08:18 Dose: 175 mcg Nystatin (Nystop) 0 gm TOP BID PRN PRN Reason: RASH Polyethylene Glycol (Miralax) 17 gm PO DAILY [facility] Last Admin: 01/05/19 07:52 Dose: Not Given Rosuvastatin Calcium (Crestor) 10 mg PO DAILY@2100 [facility] Last Admin: 01/04/19 21:04 Dose: 10 mg Sodium Chloride (Saline Flush) 10 ml FLUSH ASDIRECTED PRN PRN Reason: Keep Vein Open Last Admin: 01/05/19 08:06 Dose: 10 ml Admin: 01/05/19 04:32 Dose: 10 ml Admin: 01/04/19 19:27 Dose: 10 ml Admin: 01/04/19 18:04 Dose: 10 ml Venlafaxine HCl (Effexor Xr) 75 mg PO DAILY [facility] Last Admin: 01/05/19 07:54 Dose: 75 mg Labs: Laboratory Tests 01/04/19 01/04/19 01/04/19 Range/Units 12:45 12:45 12:45 WBC 10.2 (4.0-10.2) K/uL RBC 3.06 L (3.77-5.09) M/uL Hgb 10.3 L D (11.7-15.5) g/dL Hct 34.4 (34.0-46.0) % MCV 112.4 H D (84.0-98.0) fL MCH 33.7 H (28.2-33.3) pg MCHC 29.9 L (31.7-36.0) g/dL RDW 14.6 H (11.2-14.1) % Plt Count 198 (150-350) K/uL Neut % (Auto) 87.9 H (45.0-80.0) % Lymph % (Auto) 3.6 L (10.0-50.0) % [place] % (Auto) 6.1 (2.0-14.0) % Eos % (Auto) 2.1 (0.0-5.0) % Baso % (Auto) 0.3 (0.0-2.0) % Neut # (Auto) 8.98 H (1.40-7.00) K/uL Lymph # (Auto) 0.37 L (0.50-3.50) K/uL [place] # (Auto) 0.62 (0.00-1.00) K/uL Eos # (Auto) 0.21 (0.00-0.50) K/uL Baso # (Auto) 0.03 (0.00-0.20) K/uL Sodium 147 H (136-145) mmol/L Potassium 4.5 (3.5-5.1) mmol/L Chloride 103 (98-107) mmol/L Carbon Dioxide 41.0 H* (21.0-32.0) mmol/L BUN 11 (7-18) mg/dL Creatinine 0.65 (0.51-1.17) mg/dL Est Cr Clr Drug Dosing TNP Estimated GFR (MDRD) > 60 mL/min Glucose 240 H (74-106) mg/dL Calcium 9.4 (8.5-10.1) mg/dL Total Bilirubin 0.5 (0.2-1.0) mg/dL AST 19 (15-37) U/L ALT 22 (12-78) U/L Alkaline Phosphatase 82 (46-116) IU/L Troponin I 0.018 (0.000-0.056) ng/mL NT-Pro-B Natriuret Pep 4068 H (0-125) pg/mL Total Protein 6.7 (6.4-8.2) g/dL Albumin 2.8 L (3.4-5.0) g/dL Meds: Medications Generic Name Dose Route Start Last Admin Trade Name Freq PRN Reason Stop Dose Admin Acetaminophen 650 mg 01/04/19 14:21 Tylenol Arthritis Pain PO BEDTIME PRN Pain Acetaminophen 500 mg 01/04/19 16:58 01/04/19 19:22 Tylenol Extra Strength PO 500 mg BEDTIME PRN Administration INSOMNIA Hydrocodone Bitart/Acetaminophen 1 tab 01/04/19 16:00 [place] 325-5 Mg PO Q4HR PRN Pain Albuterol/Ipratropium 3 ml 01/04/19 14:10 Duoneb 3.0-0.5 Mg/3 Ml NEB Q4H PRN Dyspnea Albuterol/Ipratropium 3 ml 01/04/19 16:00 01/05/19 07:47 Duoneb 3.0-0.5 Mg/3 Ml NEB 3 ml Q4HRRT LIN Administration Arformoterol Tartrate 15 mcg 01/04/19 20:00 01/05/19 07:35 Brovana INH 15 mcg Q12HR LIN Administration Aspirin 81 mg 01/05/19 08:00 01/05/19 07:52 Halfprin PO 81 mg DAILY LIN Administration Budesonide 0.5 mg 01/04/19 20:00 01/05/19 08:07 Pulmicort NEB 0.5 mg Q12HR LIN Administration Cholecalciferol 50 mcg 01/05/19 08:00 01/05/19 07:54 Vitamin D3 PO 50 mcg DAILY LIN Administration Diltiazem HCl 180 mg 01/05/19 08:00 01/05/19 07:54 Cardizem Cd PO 180 mg DAILY LIN Administration Diphenhydramine HCl 25 mg 01/04/19 16:59 01/04/19 19:22 Benadryl PO 25 mg BEDTIME PRN Administration INSOMNIA Enoxaparin Sodium 40 mg 01/05/19 08:00 01/05/19 07:39 Lovenox SUBCUT 40 mg DAILY LIN Administration Furosemide 40 mg 01/05/19 08:00 01/05/19 07:42 Lasix IVPUSH 40 mg BID@08,14 LIN Administration Azithromycin 500 mg/ Sodium 250 mls @ 250 mls/hr 01/04/19 14:45 01/04/19 17: 50 Chloride IV 250 mls/hr Q24H LIN Administration Insulin Human Lispro 0 unit 01/05/19 11:30 Humalog SUBCUT TIDAC LIN Protocol Levalbuterol HCl 1.25 mg 01/04/19 17:00 Xopenex INH Q4HR PRN SHORTNESS OF BREATH Levothyroxine Sodium 100 mcg 01/05/19 08:00 01/05/19 07:55 Synthroid PO 100 mcg DAILY ILN Administration Levothyroxine Sodium 25 mcg 01/05/19 08:00 01/05/19 07:54 Levothyroxine PO 25 mcg DAILY LIN Administration Lorazepam 0.5 mg 01/04/19 18:00 01/05/19 07:53 Ativan PO 0.5 mg BID LIN Administration Methocarbamol 500 mg 01/04/19 14:21 Robaxin PO TID PRN Muscle Spasm Methylprednisolone Sodium Succinate 125 mg 01/05/19 03:00 01/05/19 08:02 Solu-Medrol IVPUSH 125 mg Q6H LIN Administration Metoprolol Tartrate 25 mg 01/04/19 18:00 01/05/19 07:53 Lopressor PO 25 mg TID LIN Administration Mirtazapine 7.5 mg 01/04/19 20:00 01/04/19 19:22 Remeron PO 7.5 mg BEDTIME [facility] Administration Levalbuterol 2 puff 01/04/19 14:21 Tartrate [Xopenex IH Hfa] 45mcg/Act ASDIRECTED PRN Inhaler SHORTNESS OF BREATH Revefenacin [Yupelri 175 mcg 01/05/19 08:00 01/05/19 08:18 ] 175 Mcg Inhalation IH 175 mcg Solution DAILY [facility] Administration Nystatin 0 gm 01/04/19 16:50 Nystop TOP BID PRN RASH Polyethylene Glycol 17 gm 01/05/19 08:00 01/05/19 07:52 Miralax PO Not Given DAILY [facility] Rosuvastatin Calcium 10 mg 01/04/19 21:00 01/04/19 21:04 Crestor PO 10 mg DAILY@2100 [facility] Administration Sodium Chloride 10 ml 01/04/19 13:11 01/05/19 08:06 Saline Flush FLUSH 10 ml ASDIRECTED PRN Administration Keep Vein Open Venlafaxine HCl 75 mg 01/05/19 08:00 01/05/19 07:54 Effexor Xr PO 75 mg DAILY LIN Administration Discontinued Medications Generic Name Dose Route Start Last Admin Trade Name Freq PRN Reason Stop Dose Admin Albuterol/Ipratropium 3 ml 01/04/19 13:44 01/04/19 13:47 Duoneb 3.0-0.5 Mg/3 Ml NEB 01/04/19 13:45 3 ml ONETIME ONE Administration Budesonide 0.5 mg 01/04/19 18:00 Pulmicort NEB BID LIN Furosemide 40 mg 01/04/19 13:11 01/04/19 13:35 Lasix IVPUSH 01/04/19 13:12 40 mg NOW ONE Administration Insulin Human Lispro 0 unit 01/04/19 17:30 01/05/19 07:37 Humalog SUBCUT 4 unit BIDAC LIN Administration Protocol Lorazepam 0.5 mg 01/04/19 18:00 Ativan PO BID LIN Lorazepam 1 mg 01/04/19 19:50 01/04/19 19:57 Ativan PO 01/04/19 19:51 1 mg ONETIME ONE Administration Methylprednisolone Sodium Succinate 125 mg 01/04/19 13:12 01/04/19 13:35 Solu-Medrol IVPUSH 01/04/19 13:13 125 mg ONETIME ONE Administration Methylprednisolone Sodium Succinate 125 mg 01/04/19 14:45 01/04/19 20:02 Solu-Medrol IVPUSH 125 mg Q6H LIN Administration Non-Formulary Medication 1 tab 01/04/19 14:21 Acetaminophen/Diphenhydramine [Tylenol Pm Ex-Strength Caplet] PO BEDTIME PRN Insomnia Non-Formulary Medication 1 tab 01/05/19 08:00 Cholecalciferol (Vitamin D3) [D3 Dots] PO DAILY LIN Non-Formulary Medication 1 ampule 01/04/19 14:21 Levalbuterol Hcl [Xopenex] NEB Q4HRRT PRN Shortness of Breath Non-Formulary Medication 125 mcg 01/05/19 08:00 Levothyroxine Sodium [Synthroid] PO DAILY LIN Non-Formulary Medication 7.5 mg 01/04/19 20:00 Mirtazapine [Mirtazapine] PO BEDTIME LIN Non-Formulary Medication 1 each 01/04/19 14:30 Nystatin [Nystatin] ASDIRECTED [facility] Venlafaxine HCl 75 mg 01/05/19 08:00 Effexor Xr PO DAILY [facility] Departure - Departure Time of Disposition: 14:10 Disposition: Admitted As Inpatient 66 Clinical Impression: Anxiety, Hypercapnia COPD (chronic obstructive pulmonary disease) Qualifiers: COPD type: COPD with acute lower respiratory infection Qualified Code(s): J44.0 - Chronic obstructive pulmonary disease with acute lower respiratory infection - Discharge Information - Problem List & Annotations (1) Anxiety SNOMED Code(s): 27508003 Code(s): F41.9 - ANXIETY DISORDER, UNSPECIFIED Status: Acute Current Visit: Yes (2) COPD (chronic obstructive pulmonary disease) SNOMED Code(s): 74119146 Code(s): J44.9 - CHRONIC OBSTRUCTIVE PULMONARY DISEASE, UNSPECIFIED Status : Acute Priority: High Current Visit: Yes Qualifiers: COPD type: COPD with acute lower respiratory infection Qualified Code(s): J44.0 - Chronic obstructive pulmonary disease with acute lower respiratory infection (3) Hypercapnia SNOMED Code(s): 51406821 Code(s): R06.89 - OTHER ABNORMALITIES OF BREATHING Status: Acute Current Visit: Yes - Problem List Review Problem List Initiated/Reviewed/Updated: Yes - My Orders Last 24 Hours: My Active Orders 01/04/19 12:40 Chest 1V Frontal [CR] Stat 01/04/19 13:09 RT Arterial Blood Gases, ABG [RC] Click to Edit 01/04/19 13:10 Saline Lock Insert [OM.PC] Stat 01/04/19 13:11 EKG Documentation Completion [RC] ASDIRECTED Sodium Chloride 0.9% [Saline Flush] 10 ml FLUSH ASDIRECTED PRN 01/04/19 13:45 RT Aerosol Therapy [RC] ASDIRECTED - Assessment/Plan Admission H&P: Please use this note as an admission H&P Last 24 Hours: My Active Orders 01/04/19 12:40 Chest 1V Frontal [CR] Stat 01/04/19 13:09 RT Arterial Blood Gases, ABG [RC] Click to Edit 01/04/19 13:10 Saline Lock Insert [OM.PC] Stat 01/04/19 13:11 EKG Documentation Completion [RC] ASDIRECTED Sodium Chloride 0.9% [Saline Flush] 10 ml FLUSH ASDIRECTED PRN 01/04/19 13:45 RT Aerosol Therapy [RC] ASDIRECTED Plan: Patient will be admitted inpatient for exacerbation of COPD, anxiety, and hypercapnia. Will make adjustments to medications and monitor respiratory status closely.
[2019-01-04] MEDS ORDERED: Albuterol/Ipratropium 3.0-0.5 MG/3 ML Neb Soln NEB ONE (13:44)
[2019-01-04] MEDS ORDERED: Albuterol/Ipratropium 3.0-0.5 MG/3 ML Neb Soln NEB PRN (14:10)
[2019-01-04] MEDS ORDERED: Methocarbamol 500 MG Tab PO PRN (14:21)
[2019-01-04] MEDS ORDERED: LEVALBUTEROL HCL NEB PRN (14:21)
[2019-01-04] MEDS ORDERED: Acetaminophen 650 MG Tab.ER PO PRN (14:21)
[2019-01-04] MEDS ORDERED: LEVALBUTEROL TARTRATE IH PRN (14:21)
[2019-01-04] MEDS ORDERED: Non-Formulary Medication 1 Each (Nystatin [Nystatin] 1 EACH) MC SCH (14:30)
[2019-01-04] MEDS ORDERED: Azithromycin 500 MG in Sodium Chloride 0.9% 250 ML IV SCH (14:45)
[2019-01-04 15:06] LABS: O2 DELIVERY DEVICE NASAL CANNULA
[2019-01-04 15:07] LABS: BASE EXCESS ARTERIAL 19 mmol/L (-2-3); BICARBONATE,ARTERIAL 43.3 mmol/L (22-26); O2 SATURATION ARTERIAL 78 % (95-98); PCO2 ARTERIAL 65 mmHG (35-45); PO2 ARTERIAL 44 mmHG (80-105)
[2019-01-04] MEDS ORDERED: Acetaminophen/HYDROcodone 325-5 MG Tab PO PRN (16:00)
[2019-01-04] MEDS ORDERED: Nystatin Topical Powder 15 GM Bottle TOP PRN (16:50)
[2019-01-04] MEDS ORDERED: Acetaminophen 500 MG Tab PO PRN (16:58)
[2019-01-04] MEDS ORDERED: diphenhydrAMINE 25 MG Cap PO PRN (16:59)
[2019-01-04] MEDS ORDERED: Levalbuterol HCl 1.25 MG/0.5 ML Neb INH PRN (17:00)
[2019-01-04] MEDS: Insulin Lispro 100 Units/ML 3 ML Vial SUBCUT SCH (17:51)
[2019-01-04] MEDS: methylPREDNISolone Sodium Succinate 125 MG/2 ML SDV IVPUSH SCH ×2 (17:51→20:02)
[2019-01-04] MEDS: Albuterol/Ipratropium 3.0-0.5 MG/3 ML Neb Soln NEB SCH ×2 (17:51→19:27)
[2019-01-04] MEDS: LORazepam 0.5 MG Tab PO SCH (17:52)
[2019-01-04] MEDS: Metoprolol Tartrate 25 MG Tab PO SCH (17:52)
[2019-01-04] MEDS ORDERED: Budesonide 0.25 MG/2 ML Neb Susp NEB SCH (18:00)
[2019-01-04] MEDS ORDERED: LORazepam 1 MG Tab PO SCH (18:00)
[2019-01-04] MEDS: Sodium Chloride 0.9% 10 ML Syringe FLUSH PRN ×2 (18:04→19:27)
[2019-01-04] MEDS: Budesonide 0.5 MG/2 ML Neb Susp NEB SCH (19:23)
[2019-01-04] MEDS: Arformoterol 15 MCG/2 ML Neb Soln INH SCH (19:27)
[2019-01-04] MEDS ORDERED: LORazepam 1 MG Tab PO ONE (19:50)
[2019-01-04] MEDS ORDERED: Non-Formulary Medication 1 Each (Mirtazapine [Mirtazapine] 7.5 MG) PO SCH (20:00)
[2019-01-04] MEDS ORDERED: Mirtazapine 15 MG Tab PO SCH (20:00)
[2019-01-04] MEDS ORDERED: Rosuvastatin 10 MG Tab PO SCH (21:00)
[2019-01-05] MEDS: Albuterol/Ipratropium 3.0-0.5 MG/3 ML Neb Soln NEB SCH ×4 (01:24→11:37)
[2019-01-05] MEDS: methylPREDNISolone Sodium Succinate 125 MG/2 ML SDV IVPUSH SCH ×2 (04:31→08:02)
[2019-01-05] MEDS: Sodium Chloride 0.9% 10 ML Syringe FLUSH PRN ×2 (04:32→08:06)
[2019-01-05] MEDS: Arformoterol 15 MCG/2 ML Neb Soln INH SCH (07:35)
[2019-01-05] MEDS: Insulin Lispro 100 Units/ML 3 ML Vial SUBCUT SCH (07:37)
[2019-01-05] MEDS: LORazepam 0.5 MG Tab PO SCH (07:53)
[2019-01-05] MEDS: Metoprolol Tartrate 25 MG Tab PO SCH ×2 (07:53→11:37)
[2019-01-05] MEDS ORDERED: Venlafaxine 75 MG Cap.ER PO SCH (08:00)
[2019-01-05] MEDS ORDERED: Cholecalciferol (Vitamin D3) 25 MCG Tab PO SCH (08:00)
[2019-01-05] MEDS ORDERED: Diltiazem 180 MG Cap.CD PO SCH (08:00)
[2019-01-05] MEDS ORDERED: REVEFENACIN 175 MCG IH SCH (08:00)
[2019-01-05] MEDS ORDERED: Furosemide 40 MG/4 ML VIAL IVPUSH SCH (08:00)
[2019-01-05] MEDS ORDERED: Levothyroxine 25 MCG Tab PO SCH (08:00)
[2019-01-05] MEDS ORDERED: CHOLECALCIFEROL PO SCH (08:00)
[2019-01-05] MEDS ORDERED: Aspirin 81 MG Tab.EC PO SCH (08:00)
[2019-01-05] MEDS ORDERED: Venlafaxine 37.5 MG Cap.ER PO SCH (08:00)
[2019-01-05] MEDS ORDERED: Enoxaparin 40 MG/0.4 ML Syringe SUBCUT SCH (08:00)
[2019-01-05] MEDS ORDERED: Levothyroxine 100 MCG Tab PO SCH (08:00)
[2019-01-05] MEDS ORDERED: Polyethylene Glycol 3350 Powder 17 GM Packet PO SCH (08:00)
[2019-01-05] MEDS ORDERED: Non-Formulary Medication 1 Each (Levothyroxine Sodium [Synthroid] 125 MCG) PO SCH (08:00)
[2019-01-05] MEDS: Budesonide 0.5 MG/2 ML Neb Susp NEB SCH (08:07)
[2019-01-05 08:14] LABS: CHLORIDE,CL 102 mmol/L (98-107); SODIUM,NA 148 mmol/L (136-145)
--- NOTE | 2019-01-05 11:18 | PCM.PN ---
- General Info Date of Service: 01/05/19 - Review of Systems General: Reports: Weakness, Fatigue HEENT: Reports: No Symptoms Pulmonary: Reports: Shortness of Breath (improving ; saturations still low ) Cardiovascular: Reports: No Symptoms, Dyspnea on Exertion. Denies: Chest Pain, Palpitations Gastrointestinal: Reports: No Symptoms Genitourinary: Reports: No Symptoms Musculoskeletal: Reports: No Symptoms Skin: Reports: No Symptoms Neurological: Reports: No Symptoms Psychiatric: Reports: Anxiety - Patient Data Vitals - Most Recent: Last Vital Signs Temp 98.1 F 01/05/19 07:19 Pulse 122 H 01/05/19 07:53 Resp 44 H 01/05/19 07:19 BP 153/80 H 01/05/19 07:53 Pulse Ox 83 L 01/05/19 10:35 Weight - Most Recent: 177 lb 8.012 oz I&O - Last 24 Hours: Intake & Output 01/04/19 01/05/19 01/05/19 22:59 06:59 14:59 Intake Total 240 200 Output Total 600 500 Balance 240 -600 -300 Lab Results Last 24 Hours: Laboratory Results - last 24 hr 01/04/19 01/04/19 01/04/19 Range/Units 12:45 12:45 12:45 WBC 10.2 (4.0-10.2) K/uL RBC 3.06 L (3.77-5.09) M/uL Hgb 10.3 L D (11.7-15.5) g/dL Hct 34.4 (34.0-46.0) % MCV 112.4 H D (84.0-98.0) fL MCH 33.7 H (28.2-33.3) pg MCHC 29.9 L (31.7-36.0) g/dL RDW 14.6 H (11.2-14.1) % Plt Count 198 (150-350) K/uL Neut % (Auto) 87.9 H (45.0-80.0) % Lymph % (Auto) 3.6 L (10.0-50.0) % [place] % (Auto) 6.1 (2.0-14.0) % Eos % (Auto) 2.1 (0.0-5.0) % Baso % (Auto) 0.3 (0.0-2.0) % Neut # (Auto) 8.98 H (1.40-7.00) K/uL Lymph # (Auto) 0.37 L (0.50-3.50) K/uL [place] # (Auto) 0.62 (0.00-1.00) K/uL Eos # (Auto) 0.21 (0.00-0.50) K/uL Baso # (Auto) 0.03 (0.00-0.20) K/uL ABG pH (7.35-7.45) ABG pCO2 (35-45) mmHG ABG pO2 (80-105) mmHG ABG HCO3 (22-26) mmol/L ABG Total CO2 (23-27) mmol/L ABG O2 Saturation (95-98) % ABG Base Excess (-2-3) mmol/L O2 Delivery Device Sodium 147 H (136-145) mmol/L Potassium 4.5 (3.5-5.1) mmol/L Chloride 103 (98-107) mmol/L Carbon Dioxide 41.0 H* (21.0-32.0) mmol/L BUN 11 (7-18) mg/dL Creatinine 0.65 (0.51-1.17) mg/dL Est Cr Clr Drug Dosing TNP Estimated GFR (MDRD) > 60 mL/min Glucose 240 H (74-106) mg/dL POC Glucose (65-110) mg/dl Calcium 9.4 (8.5-10.1) mg/dL Magnesium (1.8-2.4) mg/dL Total Bilirubin 0.5 (0.2-1.0) mg/dL AST 19 (15-37) U/L ALT 22 (12-78) U/L Alkaline Phosphatase 82 (46-116) IU/L Troponin I 0.018 (0.000-0.056) ng/mL NT-Pro-B Natriuret Pep 4068 H (0-125) pg/mL Total Protein 6.7 (6.4-8.2) g/dL Albumin 2.8 L (3.4-5.0) g/dL 01/04/19 01/04/19 01/04/19 Range/Units 15:00 17:14 21:05 WBC (4.0-10.2) K/uL RBC (3.77-5.09) M/uL Hgb (11.7-15.5) g/dL Hct (34.0-46.0) % MCV (84.0-98.0) fL MCH (28.2-33.3) pg MCHC (31.7-36.0) g/dL RDW (11.2-14.1) % Plt Count (150-350) K/uL Neut % (Auto) (45.0-80.0) % Lymph % (Auto) (10.0-50.0) % [place] % (Auto) (2.0-14.0) % Eos % (Auto) (0.0-5.0) % Baso % (Auto) (0.0-2.0) % Neut # (Auto) (1.40-7.00) K/uL Lymph # (Auto) (0.50-3.50) K/uL [place] # (Auto) (0.00-1.00) K/uL Eos # (Auto) (0.00-0.50) K/uL Baso # (Auto) (0.00-0.20) K/uL ABG pH 7.43 (7.35-7.45) ABG pCO2 65 H* (35-45) mmHG ABG pO2 44 L* (80-105) mmHG ABG HCO3 43.3 H (22-26) mmol/L ABG Total CO2 45 H (23-27) mmol/L ABG O2 Saturation 78 L (95-98) % ABG Base Excess 19 H (-2-3) mmol/L O2 Delivery Device Nasal cannula Sodium (136-145) mmol/L Potassium (3.5-5.1) mmol/L Chloride (98-107) mmol/L Carbon Dioxide (21.0-32.0) mmol/L BUN (7-18) mg/dL Creatinine (0.51-1.17) mg/dL Est Cr Clr Drug Dosing Estimated GFR (MDRD) mL/min Glucose (74-106) mg/dL POC Glucose 186 H 223 H (65-110) mg/dl Calcium (8.5-10.1) mg/dL Magnesium (1.8-2.4) mg/dL Total Bilirubin (0.2-1.0) mg/dL AST (15-37) U/L ALT (12-78) U/L Alkaline Phosphatase (46-116) IU/L Troponin I (0.000-0.056) ng/mL NT-Pro-B Natriuret Pep (0-125) pg/mL Total Protein (6.4-8.2) g/dL Albumin (3.4-5.0) g/dL 01/05/19 01/05/19 01/05/19 Range/Units 07:05 07:05 07:11 WBC 7.3 (4.0-10.2) K/uL RBC 2.94 L (3.77-5.09) M/uL Hgb 9.9 L (11.7-15.5) g/dL Hct 32.3 L (34.0-46.0) % MCV 109.9 H (84.0-98.0) fL MCH 33.7 H (28.2-33.3) pg MCHC 30.7 L (31.7-36.0) g/dL RDW 14.5 H (11.2-14.1) % Plt Count 202 (150-350) K/uL Neut % (Auto) 96.2 H (45.0-80.0) % Lymph % (Auto) 2.2 L (10.0-50.0) % [place] % (Auto) 1.5 L (2.0-14.0) % Eos % (Auto) 0.0 (0.0-5.0) % Baso % (Auto) 0.1 (0.0-2.0) % Neut # (Auto) 7.05 H (1.40-7.00) K/uL Lymph # (Auto) 0.16 L (0.50-3.50) K/uL [place] # (Auto) 0.11 (0.00-1.00) K/uL Eos # (Auto) 0.00 (0.00-0.50) K/uL Baso # (Auto) 0.01 (0.00-0.20) K/uL ABG pH (7.35-7.45) ABG pCO2 (35-45) mmHG ABG pO2 (80-105) mmHG ABG HCO3 (22-26) mmol/L ABG Total CO2 (23-27) mmol/L ABG O2 Saturation (95-98) % ABG Base Excess (-2-3) mmol/L O2 Delivery Device Sodium 148 H (136-145) mmol/L Potassium 4.0 (3.5-5.1) mmol/L Chloride 102 (98-107) mmol/L Carbon Dioxide 42.1 H* (21.0-32.0) mmol/L BUN 12 (7-18) mg/dL Creatinine 0.71 (0.51-1.17) mg/dL Est Cr Clr Drug Dosing 55.20 Estimated GFR (MDRD) > 60 mL/min Glucose 242 H (74-106) mg/dL POC Glucose 219 H (65-110) mg/dl Calcium 9.4 (8.5-10.1) mg/dL Magnesium 2.0 (1.8-2.4) mg/dL Total Bilirubin 0.5 (0.2-1.0) mg/dL AST 11 L (15-37) U/L ALT 19 (12-78) U/L Alkaline Phosphatase 74 (46-116) IU/L Troponin I (0.000-0.056) ng/mL NT-Pro-B Natriuret Pep (0-125) pg/mL Total Protein 6.3 L (6.4-8.2) g/dL Albumin 2.8 L (3.4-5.0) g/dL Med Orders - Current: Current Medications Acetaminophen (Tylenol Arthritis Pain) 650 mg PO BEDTIME PRN PRN Reason: Pain Acetaminophen (Tylenol Extra Strength) 500 mg PO BEDTIME PRN PRN Reason: INSOMNIA Last Admin: 01/04/19 19:22 Dose: 500 mg Hydrocodone Bitart/Acetaminophen (Rose 325-5 Mg) 1 tab PO Q4HR PRN PRN Reason: Pain Albuterol/Ipratropium (Duoneb 3.0-0.5 Mg/3 Ml) 3 ml NEB Q4H PRN PRN Reason: Dyspnea Albuterol/Ipratropium (Duoneb 3.0-0.5 Mg/3 Ml) 3 ml NEB Q4HRRT LIN Last Admin: 01/05/19 07:47 Dose: 3 ml Arformoterol Tartrate (Brovana) 15 mcg INH Q12HR LIN Last Admin: 01/05/19 07:35 Dose: 15 mcg Aspirin (Halfprin) 81 mg PO DAILY [facility] Last Admin: 01/05/19 07:52 Dose: 81 mg Budesonide (Pulmicort) 0.5 mg NEB Q12HR [facility] Last Admin: 01/05/19 08:07 Dose: 0.5 mg Cholecalciferol (Vitamin D3) 50 mcg PO DAILY [facility] Last Admin: 01/05/19 07:54 Dose: 50 mcg Diltiazem HCl (Cardizem Cd) 180 mg PO DAILY [facility] Last Admin: 01/05/19 07:54 Dose: 180 mg Diphenhydramine HCl (Benadryl) 25 mg PO BEDTIME PRN PRN Reason: INSOMNIA Last Admin: 01/04/19 19:22 Dose: 25 mg Enoxaparin Sodium (Lovenox) 40 mg SUBCUT DAILY [facility] Last Admin: 01/05/19 07:39 Dose: 40 mg Furosemide (Lasix) 40 mg IVPUSH BID@08,14 [facility] Last Admin: 01/05/19 07:42 Dose: 40 mg Azithromycin 500 mg/ Sodium (Chloride) 250 mls @ 250 mls/hr IV Q24H [facility] Last Admin: 01/04/19 17:50 Dose: 250 mls/hr Insulin Human Lispro (Humalog) 0 unit SUBCUT TIDAC [facility]; Protocol Levalbuterol HCl (Xopenex) 1.25 mg INH Q4HR PRN PRN Reason: SHORTNESS OF BREATH Levothyroxine Sodium (Synthroid) 100 mcg PO DAILY [facility] Last Admin: 01/05/19 07:55 Dose: 100 mcg Levothyroxine Sodium (Levothyroxine) 25 mcg PO DAILY [facility] Last Admin: 01/05/19 07:54 Dose: 25 mcg Lorazepam (Ativan) 0.5 mg PO BID [facility] Last Admin: 01/05/19 07:53 Dose: 0.5 mg Methocarbamol (Robaxin) 500 mg PO TID PRN PRN Reason: Muscle Spasm Methylprednisolone Sodium Succinate (Solu-Medrol) 125 mg IVPUSH Q6H [facility] Last Admin: 01/05/19 08:02 Dose: 125 mg Metoprolol Tartrate (Lopressor) 25 mg PO TID [facility] Last Admin: 01/05/19 07:53 Dose: 25 mg Mirtazapine (Remeron) 7.5 mg PO BEDTIME [facility] Last Admin: 01/04/19 19:22 Dose: 7.5 mg Levalbuterol Tartrate [Xopenex Hfa] 45mcg/Act Inhaler 2 puff IH ASDIRECTED PRN PRN Reason: SHORTNESS OF BREATH Revefenacin [Yupelri ] 175 Mcg Inhalation Solution 175 mcg IH DAILY [facility] Last Admin: 01/05/19 08:18 Dose: 175 mcg Nystatin (Nystop) 0 gm TOP BID PRN PRN Reason: RASH Polyethylene Glycol (Miralax) 17 gm PO DAILY [facility] Last Admin: 01/05/19 07:52 Dose: Not Given Rosuvastatin Calcium (Crestor) 10 mg PO DAILY@2100 [facility] Last Admin: 01/04/19 21:04 Dose: 10 mg Sodium Chloride (Saline Flush) 10 ml FLUSH ASDIRECTED PRN PRN Reason: Keep Vein Open Last Admin: 01/05/19 08:06 Dose: 10 ml Venlafaxine HCl (Effexor Xr) 75 mg PO DAILY [facility] Last Admin: 01/05/19 07:54 Dose: 75 mg Discontinued Medications Albuterol/Ipratropium (Duoneb 3.0-0.5 Mg/3 Ml) 3 ml NEB ONETIME ONE Stop: 01/04/19 13:45 Last Admin: 01/04/19 13:47 Dose: 3 ml Budesonide (Pulmicort) 0.5 mg NEB BID [facility] Furosemide (Lasix) 40 mg IVPUSH NOW ONE Stop: 01/04/19 13:12 Last Admin: 01/04/19 13:35 Dose: 40 mg Insulin Human Lispro (Humalog) 0 unit SUBCUT BIDAC [facility]; Protocol Last Admin: 01/05/19 07:37 Dose: 4 unit Lorazepam (Ativan) 0.5 mg PO BID [facility] Lorazepam (Ativan) 1 mg PO ONETIME ONE Stop: 01/04/19 19:51 Last Admin: 01/04/19 19:57 Dose: 1 mg Methylprednisolone Sodium Succinate (Solu-Medrol) 125 mg IVPUSH ONETIME ONE Stop: 01/04/19 13:13 Last Admin: 01/04/19 13:35 Dose: 125 mg Methylprednisolone Sodium Succinate (Solu-Medrol) 125 mg IVPUSH Q6H [facility] Last Admin: 01/04/19 20:02 Dose: 125 mg Non-Formulary Medication (Acetaminophen/Diphenhydramine [Tylenol Pm Ex-Strength Caplet]) 1 tab PO BEDTIME PRN PRN Reason: Insomnia Non-Formulary Medication (Cholecalciferol (Vitamin D3) [D3 Dots]) 1 tab PO DAILY LIN Non-Formulary Medication (Levalbuterol Hcl [Xopenex]) 1 ampule NEB Q4HRRT PRN PRN Reason: Shortness of Breath Non-Formulary Medication (Levothyroxine Sodium [Synthroid]) 125 mcg PO DAILY LIN Non-Formulary Medication (Mirtazapine [Mirtazapine]) 7.5 mg PO BEDTIME LIN Non-Formulary Medication (Nystatin [Nystatin]) 1 each ASDIRECTED [facility] Venlafaxine HCl (Effexor Xr) 75 mg PO DAILY LIN - Exam General: Alert, Oriented HEENT: Pupils Equal, Pupils Reactive, EOMI, Mucous Membr. Moist/[place] Neck: Supple Lungs: Decreased Breath Sounds (bilaterally ). No: Crackles, Rales, Rhonchi, Wheezing Cardiovascular: Irregular Rhythm (a fib - controlled ) GI/Abdominal Exam: Normal Bowel Sounds, Soft, Non-Tender, No Organomegaly, No Distention, No Abnormal Bruit, No Mass, Pelvis Stable (Female) Exam: Deferred Back Exam: Normal Inspection, Full Range of Motion Extremities: Normal Inspection, Normal Range of Motion, Non-Tender, No Pedal Edema, Normal Capillary Refill Skin: Warm, Dry, Intact Neurological: No New Focal Deficit Psy/Mental Status: Anxious (ativan controlled ) - Problem List & Annotations (1) Anxiety SNOMED Code(s): 32286984 Code(s): F41.9 - ANXIETY DISORDER, UNSPECIFIED Status: Acute Current Visit: Yes (2) COPD (chronic obstructive pulmonary disease) SNOMED Code(s): 25650005 Code(s): J44.9 - CHRONIC OBSTRUCTIVE PULMONARY DISEASE, UNSPECIFIED Status : Acute Priority: High Current Visit: Yes Qualifiers: COPD type: COPD with acute lower respiratory infection Qualified Code(s): J44.0 - Chronic obstructive pulmonary disease with acute lower respiratory infection (3) Hypercapnia SNOMED Code(s): 69505534 Code(s): R06.89 - OTHER ABNORMALITIES OF BREATHING Status: Acute Current Visit: Yes - Problem List Review Problem List Initiated/Reviewed/Updated: Yes - My Orders Last 24 Hours: My Active Orders 01/04/19 12:40 Chest 1V Frontal [CR] Stat 01/04/19 13:09 RT Arterial Blood Gases, ABG [RC] Click to Edit 01/04/19 13:10 Saline Lock Insert [OM.PC] Stat 01/04/19 13:11 EKG Documentation Completion [RC] ASDIRECTED Sodium Chloride 0.9% [Saline Flush] 10 ml FLUSH ASDIRECTED PRN 01/04/19 13:45 RT Aerosol Therapy [RC] ASDIRECTED 01/04/19 14:10 Patient Status [ADT] Routine Blood Glucose Check, Bedside [RC] QIDACANDBED Oxygen Therapy [RC] 2300 Up With Assistance [RC] ASDIRECTED Up to Chair [RC] ASDIRECTED VTE/DVT Education [RC] PER UNIT ROUTINE Vital Signs [RC] Q4HR Albuterol/Ipratropium [DuoNeb 3.0-0.5 MG/3 ML] 3 ml NEB Q4H PRN Blood Culture x2 Reflex Set [OM.PC] Stat Glucose Management Sub Q Reflex [OM.PC] Click To Edit Resuscitation Status Routine 01/04/19 14:13 Cardiac Monitoring [RC] Q2HR Intake and Output [RC] QSHIFT 01/04/19 14:15 Diabetes Education [RC] Click to Edit 01/04/19 14:16 RT Aerosol Therapy [RC] ASDIRECTED 01/04/19 14:21 Acetaminophen [Tylenol Arthritis Pain] 650 mg PO BEDTIME PRN Levalbuterol Tartrate [Xopenex Hfa] 2 puff IH ASDIRECTED PRN Methocarbamol [Robaxin] 500 mg PO TID PRN 01/04/19 14:28 CULTURE BLOOD [BC] Stat 01/04/19 14:33 RT Aerosol Therapy [RC] ASDIRECTED 01/04/19 14:35 CULTURE BLOOD [BC] Stat 01/04/19 14:45 Azithromycin [Zithromax] 500 mg Sodium Chloride 0.9% [Normal Saline] 250 ml IV Q24H 01/04/19 16:00 Acetaminophen/HYDROcodone [Rose 325-5 MG] 1 tab PO Q4HR PRN Albuterol/Ipratropium [DuoNeb 3.0-0.5 MG/3 ML] 3 ml NEB Q4HRRT 01/04/19 16:50 Nystatin [Nystop] 0 gm TOP BID PRN 01/04/19 16:58 Acetaminophen [Tylenol Extra Strength] 500 mg PO BEDTIME PRN 01/04/19 16:59 diphenhydrAMINE [Benadryl] 25 mg PO BEDTIME PRN 01/04/19 17:00 Levalbuterol HCl [Xopenex] 1.25 mg INH Q4HR PRN 01/04/19 18:00 LORazepam [Ativan] 0.5 mg PO BID Metoprolol Tartrate [Lopressor] 25 mg PO TID 01/04/19 20:00 Arformoterol [Brovana] 15 mcg INH Q12HR Budesonide [Pulmicort] 0.5 mg NEB Q12HR Mirtazapine [Remeron] 7.5 mg PO BEDTIME 01/04/19 21:00 Rosuvastatin [Crestor] 10 mg PO DAILY@2100 01/04/19 Dinner [employer] Diet [DIET] 01/05/19 03:00 methylPREDNISolone Sod Succ [Solu-MEDROL] 125 mg IVPUSH Q6H 01/05/19 05:11 Chest 2V [CR] AM 01/05/19 08:00 Aspirin [Halfprin] 81 mg PO DAILY Cholecalciferol (Vitamin D3) [Vitamin D3] 50 mcg PO DAILY Diltiazem [Cardizem CD] 180 mg PO DAILY Enoxaparin [Lovenox] 40 mg SUBCUT DAILY Furosemide [Lasix] 40 mg IVPUSH BID@, Levothyroxine 25 mcg PO DAILY Levothyroxine [Synthroid] 100 mcg PO DAILY Polyethylene Glycol 3350 [MiraLAX] 17 gm PO DAILY Revefenacin [Yupelri] 175 mcg IH DAILY Venlafaxine [Effexor XR] 75 mg PO DAILY 01/05/19 11:30 Insulin Lispro [HumaLOG] 0 unit SUBCUT TIDAC 01/06/19 05:11 CBC WITH AUTO DIFF [HEME] AM COMPREHENSIVE METABOLIC PN,CMP [CHEM] AM 01/07/19 05:11 CBC WITH AUTO DIFF [HEME] AM COMPREHENSIVE METABOLIC PN,CMP [CHEM] AM - Plan Plan:: Repeat ABGs ordered for now. Patients states she is feeling much better. Patient is still hypoxic at this time. Patient receiving ativan for anxiety. Xray does show some improvement. Will order one for tomorrow. Will continue Lasix 40mg BID IV. May transfer to [place] due to cardiomegaly. Will watch for ABG labs.
[2019-01-05] MEDS ORDERED: Insulin Lispro 100 Units/ML 3 ML Vial SUBCUT SCH (11:30)
[2019-01-05 11:34] LABS: O2 DELIVERY DEVICE NASAL CANNULA
[2019-01-05 11:37] LABS: BASE EXCESS ARTERIAL 23 mmol/L (-2-3); BICARBONATE,ARTERIAL 46.7 mmol/L (22-26); O2 SATURATION ARTERIAL 75 % (95-98)
[2019-01-05 11:39] VITALS: PULSE 106
[2019-01-05 11:40] LABS: PCO2 ARTERIAL 65 mmHG (35-45); PO2 ARTERIAL 40 mmHG (80-105)
[2019-01-05 12:05] VITALS: BP 136/66
--- NOTE | 2019-01-05 12:09 | PCM.SN ---
- Free Text/Narrative Note: Discharge summary At this time patient was evaluated although patient states that she's feeling better her see CO2 was 65.4 her PCO2 was 40 and her oxygen saturation was 75% on 4 L this has deteriorated significantly from previous ABG I spoke with Dr. Pham for transfer to [place] for evaluation and treatment by hospitalist and cdc associate. Please see note from today Final assessment hypercapnia hypoxia respiratory failure. `
== END 2019-01-05 14:15 | DRG 189 ==
LOC: LL.ED 12:28 → LL.MS 14:10
PROVIDERS: ADMIT Family Medicine; ATTEND Family Medicine
DX: J96.02 Acute respiratory failure with hypercapnia (principal); H54.7 Unspecified visual loss; E78.00 Pure hypercholesterolemia, unspecified; J22 Unspecified acute lower respiratory infection; J44.1 Chronic obstructive pulmonary disease with (acute) exacerbation; R06.89 Other abnormalities of breathing; J44.9 Chronic obstructive pulmonary disease, unspecified; I10 Essential (primary) hypertension; M19.90 Unspecified osteoarthritis, unspecified site; G89.29 Other chronic pain; M54.9 Dorsalgia, unspecified; M54.2 Cervicalgia; F41.9 Anxiety disorder, unspecified; F32.9 Major depressive disorder, single episode, unspecified; E03.9 Hypothyroidism, unspecified; M81.0 Age-related osteoporosis without current pathological fracture; Z88.5 Allergy status to narcotic agent; Z79.899 Other long term (current) drug therapy; Z92.21 Personal history of antineoplastic chemotherapy; Z87.01 Personal history of pneumonia (recurrent); Z79.82 Long term (current) use of aspirin; Z79.890 Hormone replacement therapy; Z99.81 Dependence on supplemental oxygen; Z79.51 Long term (current) use of inhaled steroids; Z85.3 Personal history of malignant neoplasm of breast; Z90.89 Acquired absence of other organs; Z86.010 Personal history of colon polyps
CPT/HCPCS: 36415; 71045; 80053; 83880; 84484; 85025; 93005; 96374; 96375; 99285; J1940; J2930; 36600; 71046; 82803; 82962; 83735; 87040; 94640; A9270-GY; J0456; J1650; J1815; J7050; J7620-GY